=== PATIENT | male | born 1965 | race Caucasian/White ===

== ENCOUNTER 2019-05-19 19:24 | Emergency (ER) | payer OTHER ==
[~2019-05-19] VITALS: Ht 172.7 cm; Wt 81.6 kg
[2019-05-19 19:30] VITALS: BP 131/90
--- NOTE | 2019-05-19 19:33 | NUR ---
TO LOBBY A/W BED AMBULATORY
--- NOTE | 2019-05-19 19:37 | NUR ---
PT AMBULATED TO JEAN
--- NOTE | 2019-05-19 19:54 | NUR ---
PT AMBULATED TO BED #6
--- NOTE | 2019-05-19 19:59 | NUR ---
53 YO M BIB SELF C/O NVD SINCE YESTERDAY MORNING. PT STATES HE HAD 12+ EPISODES DIARRHEA YESTERDAY. REPORTS SEVERE NAUSEA, BURPING AND STOMACH GROWLING AT THIS TIME. DENIES ABD PAIN. REPORTS ONE EPISODE DIARRHEA TODAY AND SELF INDUCED VOMITING X 1. ABD IS SOFT, PLIABE, NON TENDER. PMH-- DENIES RX-- TUMS YESTERDAY, NO RELIEF
[2019-05-19] MEDS ORDERED: ONDANSETRON 4 MG/2 ML VIAL IVP ONE (20:05)
[2019-05-19] MEDS ORDERED: NACL 0.9% 1,000 ML IV ONE (20:05)
[2019-05-19] MEDS ORDERED: ACETAMINOPHEN EXTRA STRENGTH 500 MG TAB PO ONE (20:05)
--- NOTE | 2019-05-19 20:20 | NUR ---
LABS DRAWN BY RN AT BEDSIDE.
[2019-05-19] MEDS ORDERED: ACETAMINOPHEN EXTRA STRENGTH 500 MG TAB ONE (20:28)
--- NOTE | 2019-05-19 20:36 | NUR ---
MEDICATED WITH 4 MG IVP ZOFRAN FOR NAUSEA. WILL REASSESS.
--- NOTE | 2019-05-19 21:01 | NUR ---
FLU SWAB AND URINE COLLECTED AND GIVEN TO LAB.
[2019-05-19 21:11] LABS: APPEARANCE,URINE CLEAR (CLEAR); BILIRUBIN,URINE 1+ (NEGATIVE); BLOOD, URINE NEGATIVE (NEGATIVE); COLOR,URINE YELLOW (YELLOW); LEUKOCYTE ESTERASE ,URINE NEGATIVE (NEGATIVE); NITRITE, URINE NEGATIVE (NEGATIVE); UGLUCOSE NEGATIVE (NEGATIVE)
[2019-05-19 21:13] LABS: BASOPHILS % (AUTO) 0.4 % (0.0-2.0); EOSINOPHILS # (AUTO) 0.2 K/uL (0-0.4); EOSINOPHILS % (AUTO) 2.4 % (0.0-4.0); HEMATOCRIT 53.4 % (36-52); HEMOGLOBIN 18.5 g/dL (12.0-18.0); LYMPHOCYTES # (AUTO) 1.7 K/uL (2.0-11.5); LYMPHOCYTES % (AUTO) 19.2 % (20.5-51.1); MEAN CORPUSCULAR HEMOGLOBIN 32 pg (27-31); MEAN CORPUSCULAR HGB CONC 35 g/dL (33-37); MEAN CORPUSCULAR VOLUME 92.6 fL (80-94); MONOCYTES # (AUTO) 0.6 K/uL (0.8-1.0); MONOCYTES % (AUTO) 6.8 % (1.7-9.3); NEUTROPHILS # (AUTO) 6.2 K/uL (1.8-7.7); NEUTROPHILS % (AUTO) 71.2 % (42.2-75.2); PLATELET COUNT (AUTO) 208 K/uL (140-450); RED BLOOD CELL COUNT(AUTO) 5.77 MIL/uL (4.20-6.10); RED CELL DISTRIBUTION WIDTH 12.4 % (11.6-13.7); WHITE BLOOD COUNT (AUTO) 8.6 K/uL (4.8-10.8)
[2019-05-19 21:45] LABS: RBC,URINE NONE SEEN /HPF (0-5); WBC,URINE NONE SEEN /HPF (0-5)
[2019-05-19 21:54] LABS: ALBUMIN 4.4 g/dL (3.4-5.0); ANION GAP 18.5 (8-16); CARBON DIOXIDE 23.8 mmol/L (21-32); POTASSIUM 3.3 mmol/L (3.5-5.1); TOTAL BILIRUBIN 0.8 mg/dL (0.0-1.0)
[2019-05-19 22:14] VITALS: BP 113/73
--- NOTE | 2019-05-19 22:14 | NUR ---
Patient discharged with v/s stable. Written and verbal after care instructions given and explained. Patient alert, oriented and verbalized understanding of instructions. Ambulatory with steady gait. All questions addressed prior to discharge. ID band removed. Patient advised to follow up with PMD. Rx of BENTYL, ZOFRAN, AND ACETAMINOPHEN given. Patient educated on indication of medication including possible reaction and side effects. Opportunity to ask questions provided and answered.
== END 2019-05-19 22:14 | disposition home or self-care (01) ==
LOC: MED 19:24
DX: R11.2 Nausea with vomiting, unspecified (principal); R19.7 Diarrhea, unspecified; F17.210 Nicotine dependence, cigarettes, uncomplicated
CPT/HCPCS: 36415; 80053; 81001; 83690; 85025; 87804; 96361; 96374; 99283; J2405

== ENCOUNTER 2020-03-18 22:25 | Emergency (ER) | payer OTHER ==
[~2020-03-18] VITALS: Ht 172.7 cm; Wt 81.6 kg
[2020-03-18 22:39] VITALS: BP 135/83
--- NOTE | 2020-03-18 22:59 | NUR ---
PT HAS BEEN HAVING DIFFUSE ABD PAIN X 3 DAYS WITH WORSENING PAIN TODAY. ABD FIRM TO TOUCH AND TENDER UPON PALPATION TO RLQ. PT DENIES N/V/D. LAST BM TODAY, NORMAL STOOL. PT AFEBRILE. BOWEL SOUNDS NORMOACTIVE. BED IN LOWEST POSITION AND SIDERAIL UP X 1. NKA NO HX
--- NOTE | 2020-03-18 23:18 | NUR ---
IV ESTABLISHED, LABS DRAWN AND AT BEDSIDE
--- NOTE | 2020-03-18 23:36 | NUR ---
PT PROVIDED WITH CUP FOR UA, ADVISED WE NEED SPECIMEN, PT AMBULATED TO RESTROOM WITH STEADY GAIT
--- NOTE | 2020-03-18 23:38 | NUR ---
UA COLLECTED AND GIVEN TO LAB. PT TAKEN TO X-RAY VIA WHEELCHAIR
[2020-03-18 23:43] LABS: BASOPHILS % (AUTO) 0.7 % (0.0-2.0); EOSINOPHILS # (AUTO) 0.2 K/uL (0-0.4); HEMOGLOBIN 16.5 g/dL (12.0-18.0); MONOCYTES # (AUTO) 0.5 K/uL (0.8-1.0); NEUTROPHILS # (AUTO) 3.1 K/uL (1.8-7.7); RED CELL DISTRIBUTION WIDTH 12.2 % (11.6-13.7)
[2020-03-18 23:45] LABS: APPEARANCE,URINE CLEAR (CLEAR); BILIRUBIN,URINE NEGATIVE (NEGATIVE); BLOOD, URINE NEGATIVE (NEGATIVE); COLOR,URINE YELLOW (YELLOW); LEUKOCYTE ESTERASE ,URINE NEGATIVE (NEGATIVE); NITRITE, URINE NEGATIVE (NEGATIVE); UGLUCOSE NEGATIVE (NEGATIVE)
[2020-03-18] MEDS ORDERED: FAMOTIDINE 20 MG TAB PO STA (23:47)
[2020-03-18] MEDS ORDERED: DICYCLOMINE 10 MG CAP PO STA (23:47)
[2020-03-18] MEDS ORDERED: ALUMINUM HYD/MAG/SIMETHICONE 30 ML UDC PO STA (23:47)
[2020-03-18 23:49] LABS: EOSINOPHILS % (AUTO) 3.9 % (0.0-4.0); HEMATOCRIT 46.5 % (36-52); LYMPHOCYTES # (AUTO) 2.1 K/uL (2.0-11.5); LYMPHOCYTES % (AUTO) 34.7 % (20.5-51.1); MEAN CORPUSCULAR HEMOGLOBIN 33 pg (27-31); MEAN CORPUSCULAR HGB CONC 36 g/dL (33-37); MEAN CORPUSCULAR VOLUME 92.7 fL (80-94); MONOCYTES % (AUTO) 8.4 % (1.7-9.3); NEUTROPHILS % (AUTO) 52.3 % (42.2-75.2); PLATELET COUNT (AUTO) 157 K/uL (140-450); RED BLOOD CELL COUNT(AUTO) 5.01 MIL/uL (4.20-6.10)
[2020-03-18 23:59] LABS: ALBUMIN 3.7 g/dL (3.4-5.0); CARBON DIOXIDE 25.5 mmol/L (21-32); CREATININE 0.8 mg/dL (0.6-1.3); POTASSIUM 3.5 mmol/L (3.5-5.1); TOTAL BILIRUBIN 0.4 mg/dL (0.0-1.0)
--- NOTE | 2020-03-19 00:31 | NUR ---
PT DENIES ANY RELIEF FROM GI MEDS, AWARE
[2020-03-19] MEDS ORDERED: HYDROcodone/APAP 5/325 MG 1 TAB TAB PO ONE (00:45)
--- NOTE | 2020-03-19 01:16 | NUR ---
PT TAKEN TO CT VIA WHEELCHAIR
--- NOTE | 2020-03-19 02:56 | NUR ---
PT SAYS HE WANTS TO GO HOME, HE'S "BORED". MD TORRES NOTIFIED PT READY TP LEAVE.
[2020-03-19 03:11] VITALS: BP 138/72
--- NOTE | 2020-03-19 03:12 | NUR ---
Patient discharged with v/s stable. Written and verbal after care instructions given and explained. Patient verbalized understanding. Ambulatory with steady gait. All questions addressed prior to discharge. Advised to follow up with PMD.
== END 2020-03-19 03:11 | disposition home or self-care (01) ==
LOC: MED 22:25
DX: R10.84 Generalized abdominal pain (principal); F17.210 Nicotine dependence, cigarettes, uncomplicated
CPT/HCPCS: 36415; 74018; 80053; 81003; 82150; 83690; 85025; 99284

== ENCOUNTER 2023-12-10 07:24 | Day surgery (SDC) | payer OTHER ==
[~2023-12-10] VITALS: Ht 172.7 cm; Wt 81.6 kg
[2023-12-10] MEDS ORDERED: fentaNYL citrate 0.05 MG/ML VIAL ONE (08:33)
[2023-12-10] MEDS: fentaNYL citrate 0.05 MG/ML VIAL IVP ONE (09:46)
== END 2023-12-10 11:54 | disposition home or self-care (01) ==
LOC: MDS 07:24 → MMU 07:25 → MDS 11:54
PROVIDERS: ATTEND Internal Medicine Gastroenterology
DX: Z12.11 Encounter for screening for malignant neoplasm of colon (principal); K63.5 Polyp of colon; F17.210 Nicotine dependence, cigarettes, uncomplicated; Z79.899 Other long term (current) drug therapy
CPT/HCPCS: 45385; J3010